=== PATIENT | female | born 1980 | race Caucasian/White ===

== ENCOUNTER 2019-03-19 09:37 | Day surgery (SDC) | payer BC ==
[~2019-03-19] VITALS: Ht 157.5 cm; Wt 61.2 kg
[~2019-03-19 09:37] MED LIST: ALEVE220 MG PO; IBUPROFEN600 MG PO
[2019-03-19 10:05] LABS: HEMATOCRIT 41.7 % (36.0-48.0); HEMOGLOBIN 13.9 g/dL (12-16); MCHC 33.3 g/dL (31.0-37.0); MCV 89.9 fL (80.0-100.0); MEAN PLATELET VOLUME 9.7 fL (7.4-10.4); RBC 4.64 10x6/uL (4.00-5.40); RDW 13.6 % (11.5-14.5); WBC 4.8 10x3/uL (4.8-10.8)
[2019-03-19 10:52] VITALS: BP 133/85; Ht 157.5 cm; Wt 61.2 kg
[2019-03-19 11:32] LABS: HCG URINE NEGATIVE (NEGATIVE)
[2019-03-19] MEDS ORDERED: DURICEF500 MG PO (14:41)
[2019-03-19] MEDS ORDERED: HYDROCODON-ACE1 EAC7 PO (14:41)
--- NOTE | 2019-03-19 19:39 | NUR ---
1510 IV REMOVED 1530 VOIDED X1 IV REMOVED 1555 D/C HOME RECIEVED INSTRUCTIONS
--- NOTE | 2019-03-20 07:41 | OP ---
PATIENT NAME: KATHIE BOYKIN MEDICAL RECORD: [id number] :78 LOCATION:[facility] ADMISSION DATE: SURGEON: PHIL WHEATLEY DO DATE OF OPERATION: 03/19/2019 PROCEDURE PERFORMED: Right De Quervain or first dorsal compartment release. PREOPERATIVE DIAGNOSIS: Right radial styloid tenosynovitis or de Quervain's tenosynovitis. POSTOPERATIVE DIAGNOSIS: Right radial styloid tenosynovitis or de Quervain's tenosynovitis. INDICATIONS: Ms. Boykin is a 38-year-old female who has had trouble with this pain with any kind of movement for quite some time, it has been going on for 3-4 months. She had an injection in it which did help for a very short time, but eventually wore off and it was extremely painful. She was tried dealing with the pain and she could not move her wrist without any pain and wanted something done surgically. I informed her of the risks and benefits of the procedure including infection, bleeding, damage to nerves and vessels, especially the radial sensory nerve at the wrist and the patient was aware of those risks and signed the consent. SURGEON: Phil Wheatley DO DESCRIPTION OF PROCEDURE: The patient was given a block by anesthesia in the preoperative area, was taken to the operative suite, laid in supine position, given a gram of Ancef preoperatively. The right upper extremity was then prepped and draped in sterile fashion. This was done under regional block. Once right upper extremity was prepped and draped in sterile fashion, a timeout was performed and everyone was in agreeance with the correct side, site, and patient and procedure. The right upper extremity was then exsanguinated with an Esmarch and tourniquet was inflated to 250 mmHg, it was up for 12 minutes. Incision then began over the radial styloid. Careful dissection was made down to the first dorsal compartment, extensor pollicis brevis and abductor pollicis longus tendons were noted. The tendon sheath was very thick. This was divided first with a 15-blade scalpel and then scissors to release first the extensor pollicis brevis and then the abductor pollicis longus was in a separate compartment and this was released as well. Any synovitis was taken out at that time too. The 2-0 Vicryl was then used to put a small stay stitch in the tendon sheath so as to protect the tendons from subluxing volarly. The tourniquet was then let down. Any bleeding was coagulated with a bipolar and the skin incision was then closed with 4-0 Monocryl in an inverted interrupted fashion. Steri-Strips were then placed. Adaptic, 4 x 4s, ABD, Webril, and Donald wrap was then placed on the wrist from the palm of the hand up more proximal. She was then taken back to her room in stable condition. BLOOD LOSS: Minimal. COMPLICATIONS: None. TRANSINT:[id number] Voice Confirmation ID: [id number] DOCUMENT ID: [id number] OPERATIVE REPORT [id number] KATHIE BOYKIN MICHAEL D, DO at 0741 CC: [id number] DICTATION DATE: 03/19/19 1439 [facility] ICER: 03/19/19 1622 [facility] 03/19/19 [id number] [place] [address]
== END 2019-03-19 15:55 | disposition home or self-care (01) ==
LOC: D.PAN 09:37 → D.OPS 11:45 → D.PAN 15:55
PROVIDERS: Anesthesiology; ATTEND Orthopaedic Surgery
DX: M65.4 Radial styloid tenosynovitis [de Quervain] (principal); Z01.812 Encounter for preprocedural laboratory examination

== ENCOUNTER → 2019-05-07 07:43 | Outpatient (CLI) | payer BC ==
[2019-03-19 10:52] VITALS: BMI 24.7
[~2019-05-07 07:43] MED LIST changes: +ACETAMINOPHEN500 M1 PO; +DURICEF500 MG PO; +HYDROCODON-ACE1 EAC7 PO
== END | disposition home or self-care (01) ==
LOC: D.MRI 07:43
PROVIDERS: ATTEND Orthopaedic Surgery
DX: M25.531 Pain in right wrist (principal)

== ENCOUNTER 2019-05-10 07:03 | Day surgery (SDC) | payer BC ==
[2019-05-09 15:05] LABS: HEMATOCRIT 43.2 % (36.0-48.0); HEMOGLOBIN 14.7 g/dL (12-16); MCH 29.5 pg (26.0-34.0); MCV 86.7 fL (80.0-100.0); MEAN PLATELET VOLUME 9.2 fL (7.4-10.4); RBC 4.98 10x6/uL (4.00-5.40); RDW 13.8 % (11.5-14.5); WBC 5.3 10x3/uL (4.8-10.8)
[~2019-05-10] VITALS: Ht 157.5 cm; Wt 61.7 kg
[~2019-05-10 07:03] MED LIST changes: -ACETAMINOPHEN500 M1 PO
[2019-05-10] MEDS ORDERED: ACETAMINOPHEN500 M1 PO (07:12)
[2019-05-10 07:19] VITALS: BP 141/89; Ht 157.5 cm; Wt 61.7 kg
[2019-05-10 07:32] LABS: HCG URINE NEGATIVE (NEGATIVE)
[2019-05-10] MEDS ORDERED: DURICEF500 MG PO (09:34)
[2019-05-10] MEDS ORDERED: HYDROCODON-ACE1 EAC7 PO (09:34)
--- NOTE | 2019-05-10 10:00 | NUR ---
LEFT HAND PIV DC'D WITH TIP INTACT. DISCHARGE INSTRUCTIONS REVIEWED WITH PATIENT, PATIENT DRESSING IN PERSONAL CLOTHING WITH SPOUSE ASSISTANCE
--- NOTE | 2019-05-10 10:10 | NUR ---
PATIENT WALKING IN [place], NO UNSTEADINESS OR DIZZINESS, ESCORTED BY SPOUSE. PATIENT DISCHARGED HOME AMBULATORY WITH SPOUSE
--- NOTE | 2019-05-10 10:44 | OP ---
PATIENT NAME: KATHIE BOYKIN MEDICAL RECORD: [id number] :78 LOCATION:[facility] ADMISSION DATE: SURGEON: MARGUERITE WHEATLEY DO DATE OF OPERATION: 05/10/2019 PROCEDURE PERFORMED: Right wrist I&D with revision de Quervain's release or radial styloid tenosynovitis with first dorsal compartment release. PREOPERATIVE DIAGNOSIS: Right wrist pain with recurrent de Quervain's tenosynovitis or radial styloid tenosynovitis. POSTOPERATIVE DIAGNOSIS: Right wrist pain with recurrent de Quervain's tenosynovitis or radial styloid tenosynovitis. INDICATIONS: Ms. Boykni is a 38-year-old patient, who underwent de Quervain's release or first dorsal compartment release just over a month ago and she developed symptoms of it returning. Had a good release of all the compartments. She had 2 extra slip of the APL as well. She tried an injection, did not do anything and she had continued pain and symptoms of it. The MRI was done and it showed that she had recurrent inflammation in the area and synovitis. Told her we will do an I&D and look at it and see what we can do to release it. She was okay with that plan and was aware of the risks of damage to the radial nerve, sensory nerve, need for further surgery and signed the consent. SURGEON: Marguerite Wheatley DO DESCRIPTION OF PROCEDURE: The patient was taken to the operative suite after given a block by anesthesia. She was given a gram of Ancef preoperatively. She did not go to sleep at all, tested under a block. The right upper extremity was prepped and draped in sterile fashion. A time-out was performed. Everyone was in agreement with correct side, site, patient, and procedure. The Esmarch was then used to exsanguinate the right upper extremity and tourniquet was inflated to 250 mmHg, was up for 27 minutes. Incision then began over the old incision. Careful dissection was made down to the first dorsal compartment. The compartment had completely reformed, the tendon sheath over the first dorsal compartment. I could see where the prior release was, but the scar tissue had formed over it and then even into the tendons. This was all dissected down and out and then a complete synovectomy was done over the tendons. This was wrapped and Amniox and sutured down with 5-0 Monocryl with suturing it over the tendons. The sheath was then lengthened and secured down with a 5-0 Monocryl ensuring that the tendons were not subluxed volarly. The tourniquet was then let down. Any bleeding was coagulated with the bipolar. Then closed the skin with 5-0 Monocryl, first in an inverted interrupted fashion and then ran subcuticular on the skin. Steri-Strips, Adaptic, 4 x 4's, Kerlix, and Coban was lightly wrapped on the wrist. She was taken back to recovery in stable condition. BLOOD LOSS: Minimal. COMPLICATIONS: None. TRANSINT:[id number] Voice Confirmation ID: [id number] DOCUMENT ID: [id number] OPERATIVE REPORT [id number] KATHIE BOYKIN MICHAEL D, DO at 1044 CC: [id number] DICTATION DATE: 05/10/19928 [facility] ATTENDANT: 05/10/19 1035 [facility] 05/10/19 [id number] [place] [address]
== END 2019-05-10 10:10 | disposition home or self-care (01) ==
LOC: D.OPS 07:03 → D.PAN 11:15
PROVIDERS: Anesthesiology; ATTEND Orthopaedic Surgery
DX: M65.4 Radial styloid tenosynovitis [de Quervain] (principal)

== ENCOUNTER → 2019-07-02 10:34 | Outpatient (CLI) | payer BC ==
[2019-05-10 07:19] VITALS: BMI 24.9
[~2019-07-02 10:34] MED LIST changes: +ACETAMINOPHEN500 M1 PO
[2019-07-02 11:41] LABS: ALBUMIN 4.2 g/dL (3.4-5.0); ANION GAP 10.1 mmol/L (8-16); BILIRUBIN - TOTAL 0.46 mg/dL (0.2-1.3); CALCIUM 9.1 mg/dL (8.5-10.1); CREATININE - SERUM 0.9 mg/dL (0.6-1.3); POTASSIUM - SERUM 4.1 mmol/L (3.5-5.1); PROTEIN - SERUM 6.9 g/dL (6.4-8.2)
== END | disposition home or self-care (01) ==
LOC: D.LAB 10:34
DX: B36.8 Other specified superficial mycoses (principal)

== ENCOUNTER → 2019-11-27 17:13 | Outpatient (CLI) | payer BC ==
[2019-05-10 07:19] VITALS: BMI 24.9
[2019-11-28 12:09] LABS: RUBELLA IGG 1.98 index (Immune >0.99)
[2019-11-29 21:06] LABS: B PERTUSSIS - IGA <1.0 index (0.0-0.9); B PERTUSSIS - IGM <1.0 index (0.0-0.9)
== END | disposition home or self-care (01) ==
LOC: D.LABREF 17:13
PROVIDERS: ATTEND Surgery
DX: Z01.84 Encounter for antibody response examination (principal)